=== PATIENT | female | born 1980 | race Caucasian/White ===

== ENCOUNTER 2021-02-08 20:33 | Emergency (ER) | payer MEDICAID ==
[~2021-02-08] VITALS: Ht 160 cm; Wt 80.7 kg
[2021-02-08 20:37] VITALS: BP 119/77
--- NOTE | 2021-02-08 20:37 | NUR ---
TO BED AMBULATORY
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
--- NOTE | 2021-02-08 21:33 | NUR ---
ERMD AT BEDSIDE.
[2021-02-08] MEDS ORDERED: KETOROLAC 30 MG/ML VIAL IVP ONE (21:40)
[2021-02-08] MEDS ORDERED: NACL 0.9% 1,000 ML IV SCH (21:40)
[2021-02-08] MEDS ORDERED: ONDANSETRON 4 MG/2 ML VIAL IVP ONE (21:40)
--- NOTE | 2021-02-08 21:50 | NUR ---
IV EST. RAC 20G. LABS DRAWN. HAND GIVEN TO SOFTWARE DEVELOPMENT LEADER AT BEDSIDE.
--- NOTE | 2021-02-08 21:52 | NUR ---
Ultrasound at bedside.
[2021-02-08 21:55] LABS: APPEARANCE,URINE CLEAR (CLEAR); BILIRUBIN,URINE NEGATIVE (NEGATIVE); BLOOD, URINE 3+ (NEGATIVE); COLOR,URINE YELLOW (YELLOW); LEUKOCYTE ESTERASE ,URINE NEGATIVE (NEGATIVE); NITRITE, URINE NEGATIVE (NEGATIVE); UGLUCOSE NEGATIVE (NEGATIVE)
--- NOTE | 2021-02-08 21:56 | NUR ---
PT REFUSED TORADOL PAIN MEDICATION, ERMD MADE AWARE.
[2021-02-08 21:57] LABS: BASOPHILS % (AUTO) 0.4 % (0.0-2.0); EOSINOPHILS # (AUTO) 0.1 K/uL (0-0.4); EOSINOPHILS % (AUTO) 1.3 % (0.0-4.0); HEMATOCRIT 37.6 % (36-48); HEMOGLOBIN 12.7 g/dL (12.0-16.0); LYMPHOCYTES # (AUTO) 1.5 K/uL (2.5-16.5); LYMPHOCYTES % (AUTO) 15.6 % (20.5-51.1); MEAN CORPUSCULAR HEMOGLOBIN 31 pg (27-31); MEAN CORPUSCULAR HGB CONC 34 g/dL (33-37); MONOCYTES # (AUTO) 0.5 K/uL (0.8-1.0); MONOCYTES % (AUTO) 5.1 % (1.7-9.3); NEUTROPHILS # (AUTO) 7.6 K/uL (1.8-7.7); NEUTROPHILS % (AUTO) 77.6 % (42.2-75.2); PLATELET COUNT (AUTO) 331 K/uL (140-450); RED BLOOD CELL COUNT(AUTO) 4.09 MIL/uL (4.20-5.40); WHITE BLOOD COUNT (AUTO) 9.8 K/uL (4.8-10.8)
[2021-02-08 22:09] LABS: RBC,URINE >100 /HPF (0-5); WBC,URINE 0-5 /HPF (0-5)
[2021-02-08 22:19] LABS: ANION GAP 15.6 (8-16); CARBON DIOXIDE 24.3 mmol/L (21-32); CREATININE 0.9 mg/dL (0.6-1.3); POTASSIUM 3.9 mmol/L (3.5-5.1); TOTAL BILIRUBIN 0.3 mg/dL (0.0-1.0)
--- NOTE | 2021-02-08 22:55 | NUR ---
PER PT, OK TO USE CURRENT PHARMACY LISTED FOR DISCHARGE RX, RATHER THAN [facility]; ERMD AWARE.
[2021-02-08] MEDS ORDERED: TAMS0.4C96 PO (23:01)
[2021-02-08] MEDS ORDERED: ONDA8TAB87 PO (23:01)
[2021-02-08] MEDS ORDERED: IBUP-2213 PO (23:01)
[2021-02-08] MEDS ORDERED: ACET-8386 PO (23:01)
--- NOTE | 2021-02-08 23:11 | NUR ---
Patient discharged with v/s stable. Written and verbal after care instructions given and explained. Patient alert, oriented and verbalized understanding of instructions. Ambulatory with steady gait. All questions addressed prior to discharge. ID band removed. Patient advised to follow up with PMD. Rx of NORCO, IBUPROFEN, ZOFRAN AND FLOMAX given. Patient educated on indication of medication including possible reaction and side effects. Opportunity to ask questions provided and answered.
[2021-02-08 23:14] VITALS: BP 119/77
== END 2021-02-08 23:11 | disposition home or self-care (01) ==
LOC: MED 20:33
DX: R10.11 Right upper quadrant pain (principal); R68.83 Chills (without fever); R11.0 Nausea; Z79.899 Other long term (current) drug therapy
CPT/HCPCS: 36415; 76705; 80053; 81001; 81025; 83690; 85025; 96361; 96374; 99284; J2405; J7030; J1885

== ENCOUNTER 2022-12-16 12:56 | Emergency (ER) | payer OTHER ==
[~2022-12-16] VITALS: Ht 160 cm; Wt 82.1 kg
[~2022-12-16 12:56] MED LIST: ACET-8905 PO; IBUP-2213 PO; ONDA8TAB87 PO; TAMS0.4C96 PO
[2022-12-16 13:10] VITALS: BP 127/77
--- NOTE | 2022-12-16 13:28 | NUR ---
PT AMBULATED TO ER BED 6
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
--- NOTE | 2022-12-16 14:10 | NUR ---
Patient is alert and verbally responsive. All needs met by staff.
[2022-12-16] MEDS ORDERED: LIDOCAINE 5% 1 EA PATCH TP ONE (14:30)
[2022-12-16] MEDS ORDERED: methocarbamoL 500 MG TAB PO ONE (14:30)
[2022-12-16] MEDS ORDERED: KETOROLAC 30 MG/ML VIAL IM ONE (14:30)
[2022-12-16 15:41] VITALS: BP 109/69
[2022-12-16] MEDS ORDERED: IBUP-2213 PO (15:56)
[2022-12-16] MEDS ORDERED: ACET-10509 PO (15:56)
[2022-12-16] MEDS ORDERED: EMLAC TP (15:56)
[2022-12-16] MEDS ORDERED: METH-1681 PO (15:56)
--- NOTE | 2022-12-16 16:04 | NUR ---
Dr. Esqueda re-evaluating patient at bedside.
--- NOTE | 2022-12-16 16:06 | NUR ---
The patient's care was reviewed and supervised by JASON MARY RN. Pt. left home without difficulty. NO acute distress. Ambulates without difficulty. Stable for D/C
== END 2022-12-16 16:00 | disposition home or self-care (01) ==
LOC: MED 12:56
DX: S39.012A Strain of muscle, fascia and tendon of lower back, initial encounter (principal); S16.1XXA Strain of muscle, fascia and tendon at neck level, initial encounter; S09.90XA Unspecified injury of head, initial encounter; Z79.899 Other long term (current) drug therapy; Z79.1 Long term (current) use of non-steroidal anti-inflammatories (NSAID); V89.2XXA Person injured in unspecified motor-vehicle accident, traffic, initial encounter; Y93.89 Activity, other specified; Y92.410 Unspecified street and highway as the place of occurrence of the external cause; Y99.8 Other external cause status
CPT/HCPCS: 70450; 99284; J1885